=== PATIENT | female | born 1975 | race Caucasian/White ===

== ENCOUNTER → 2019-08-22 | Outpatient (CLI) | payer BC ==
--- NOTE | 2019-08-31 12:39 | EEG ---
[address] [address] EEG STUDY REPORT Name: JOSE HAYWARD Room: [facility]#: [id number] Admission: 08/22/19 Attend Phys: Marshall Arriaga MD Discharge: Date of : 73 Report #: [id number] THIS REPORT FOR: //name// CC: Marshall Jung DATE OF SERVICE: 08/22/2019 This patient is being evaluated for dizziness. EEG was done by placing the electrode by standard 10-20 system of electrode placement. Both referential and sequential montages were used for recording. Background activity in this patient's EEG is about 10 Hz and 15 microvolt. The patient became drowsy that is associated with bilateral slowing and vertex sharp waves. Photic stimulation was unremarkable. Throughout the record, no active epileptiform activity was noticed. IMPRESSION: This patient's EEG is somewhat low voltage, but does not appear to be showing any epileptiform activity and low voltage EEG can be normal variation. Thank you very much for this referral. <ELECTRONICALLY SIGNED> By: Marshall Arriaga MD 08/31/19 [id number] Arriaga MD /nt
== END ==
LOC: M.CRD 12:56
PROVIDERS: ATTEND Psychiatry & Neurology Neuromuscular Medicine
DX: R42 Dizziness and giddiness (principal); D32.9 Benign neoplasm of meninges, unspecified